=== PATIENT | male | born 1960 | race Caucasian/White ===

== ENCOUNTER 2025-03-19 00:22 | Outpatient (CLI) | payer MEDICARE, BC, SELFPAY ==
--- NOTE | 2025-03-19 13:22 | DI.RAD_ITS ---
Exam(s) RF JOINT INJ. FLUORO GUID RAD EXAM: RF JOINT INJ. FLUORO GUID RAD CLINICAL HISTORY: Lt shoulder pain M25.512,FLUORO GUIDED INJ,. The Patient has had persistent left shoulder pain. Noninvasive measures have been tried. To serve as both diagnostic and therapeutic, an injection under fluoroscopy was recommended. The risks of the procedure were discussed with their Orthopedic provider and the patient elected to proceed. TECHNIQUE: 2D and realtime digital imaging was performed. CONTRAST MATERIAL: Water soluble contrast was utilized. COMPARISON: No exams were available for comparison FINDINGS: The Patient was greeted in the fluoroscopy room. The correct side was identified and the consent was reviewed with the patient and was signed. The patient was properly positioned on the fluoroscopy table. The left shoulderwas then prepped and draped. The left shoulder injection starting point was i dentified by the bony landmarks and fluoroscopy. The skin and soft tissue in the tract of the injection was anesthetized with 1% Bupivacaine. A spinal needle was then inserted into the left shoulder joint at the level of the glenohumeral joint under fluoroscopic guidance. A small amount of Omnipaque solution was injected to confirm intraarticular placement. Once confirmed, the left shoulder was injected with 5cc of a solution containing 0.5% Bupivacaiine and 40 mg of Depo-Medrol. A bandaid was placed on the injection site. The patient tolerated the procedure well and left the department in good condition. IMPRESSION: Successful left shoulder injection. RADIATION DOSE DELIVERED: Kar=3.24 mGy
[2025-03-19] MEDS: methylPREDNISolone ACETATE 40 MG/ML VIAL IM (13:24)
[2025-03-19] MEDS: Bupivacaine 0.5% Pres-Free 10 ML VIAL IJ (13:25)
[2025-03-19] MEDS: Omnipaque 300 MG/ML 10 ML BTL IJ (13:26)
== END 2025-03-19 00:42 ==
PROVIDERS: Visit Provider Orthopaedic Surgery
DX: M25.512 Pain in left shoulder (principal)
CPT/HCPCS: 20610; 77002; J0665; J1010